=== PATIENT | female | born 1955 | race Caucasian/White ===

== ENCOUNTER 2018-05-18 16:56 | Emergency (ER) | payer MEDICAID ==
--- NOTE | 2018-05-18 18:46 | ER Document Report ---
ED General - General Chief Complaint: Abscess Stated Complaint: POSSIBLE ABSCESS Time Seen by Provider: 05/18/18 18:38 Mode of Arrival: Ambulatory Information source: Patient Notes: Carolin Gordon is a 63-year-old female presenting to the emergency department for an abscess of her left breast located at the 5 o'clock position approximately 1 inch away from her nipple. The abscess began yesterday and is associated with yellowish and clear drainage. She denies any other symptoms. She has a history of right breast cancer in 2004 which necessitated a mastectomy. It was stage III, and she cannot remember what type of breast cancer but she remembers that nipple retraction was her only presenting symptom. her last mammogram was in 2004 because she has not been able to organize transportation to mammogram appointments. She has a transport service available to her but found them too frustrating to work with. She is resting comfortably in bed, with no increased work of breathing and even and unlabored respirations. Her gait is steady and regular. TRAVEL OUTSIDE OF THE [place] IN LAST 30 DAYS: No - HPI Onset: Yesterday Onset/Duration: Sudden, Intermittent Quality of pain: Fullness, Sharp Severity: Moderate Pain Level: 2 Associated symptoms: None, Other - No unexpected weight loss. denies: Body/ muscle aches, Chills Exacerbated by: Denies Relieved by: Denies Similar symptoms previously: No Recently seen / treated by doctor: No - Related Data Allergies/Adverse Reactions: silk tape Allergy (Uncoded 05/18/18 17:02) Home Medications: none Past Medical History - General Information source: Patient - Social History Smoking Status: Current Every Day Smoker Chew tobacco use (# tins/day): No Frequency of alcohol use: None Drug Abuse: None Lives with: Family Family History: Reviewed & Not Pertinent Patient has suicidal ideation: No Patient has homicidal ideation: No - Medical History Medical History: Other - Past Medical History Cardiac Medical History: Reports: None Denies: Hx Hypertension Pulmonary Medical History: Reports: None Denies: Hx COPD EENT Medical History: Reports: None Neurological Medical History: Reports: None Endocrine Medical History: Reports: None Renal/ Medical History: Reports: None. Denies: Hx Peritoneal Dialysis Malignancy Medical History: Reports: Hx Breast Cancer - patient is unsure of type, stage III at diagnosis, s/p R mastectomy GI Medical History: Reports: None Musculoskeletal Medical History: Reports None Skin Medical History: Reports None Psychiatric Medical History: Reports: None Traumatic Medical History: Reports: None Infectious Medical History: Reports: None Past Surgical History: Reports: Hx Mastectomy - 2004 Review of Systems - Review of Systems Constitutional: denies: Fever, Malaise, Weight gain, Weight loss, Recent illness EENT: No symptoms reported Cardiovascular: No symptoms reported Respiratory: No symptoms reported Gastrointestinal: No symptoms reported Genitourinary: No symptoms reported Female Genitourinary: Post menopausal Musculoskeletal: No symptoms reported Skin: See HPI Hematologic/Lymphatic: No symptoms reported. denies: Enlarged lymph nodes Neurological/Psychological: No symptoms reported Physical Exam - Vital signs Vitals: Temp Pulse Resp BP Pulse Ox 97.8 F 95 20 169/74 H 99 05/18/18 17:17 05/18/18 17:17 05/18/18 17:17 05/18/18 17:17 05/18/18 17:17 - Notes Notes: Left breast has beefy erythema along the inferior half with raised borders. slight yellow d/c is located at the 5 o'clock position approximately 1 inch away from the nipple with scant clear and yellow discharge noted. Deep palpation along the inferior border of the breast reveals mobile, rubbery mass approximately 3 cm medial-lateral, and 1cm inferior-superior. Area of erythema noted to be 10 cm x 8 cm. R breast is s/p mastectomy with well-healed scar and no palpable masses or visible erythema. - General General appearance: Appears well, Alert In distress: None - HEENT Head: Normocephalic, Atraumatic Eyes: Normal Extraocular movements intact: Yes Neck: Normal. No: Anterior cervical chain, Posterior cervical chain, Lymphadenopathy - Respiratory Respiratory status: No respiratory distress Chest status: Nontender. No: Accessory muscle use Breath sounds: Normal Chest palpation: Normal - Cardiovascular Rhythm: Regular Heart sounds: Normal auscultation, S1 appreciated, S2 appreciated - Abdominal Inspection: Normal, Morbidly Obese. No: Caput medussa Distension: No distension Bowel sounds: Normal Tenderness: Nontender - Back Back: Normal - Extremities Arm: Other - R upper extremity lymphadema noted - Skin Skin Temperature: Warm Skin Moisture: Dry Course - Re-evaluation Re-evalutation: 05/18/18 20:05 Discussed with the patient at length ultrasound results. States there is no obvious pocket of infection to be drained at this time. Discussed need to follow-up with primary care provider and then get a full mammogram. Discussed treating the patient with antibiotics for the cellulitis. Patient states she does not have a primary care provider but does have insurance. Stated I would give her family practice doctor information through her discharge. Vitals reviewed, nursing notes reviewed. - Vital Signs Vital signs: Temp Pulse Resp BP Pulse Ox 97.8 F 95 20 169/74 H 99 05/18/18 17:17 05/18/18 17:17 05/18/18 17:17 05/18/18 17:17 05/18/18 17:17 Discharge - Discharge Clinical Impression: Cellulitis of breast Condition: Stable Disposition: HOME, SELF-CARE Instructions: Trimethoprim-Sulfa ([facility]), Cephalexin ([facility]), Cellulitis ([facility]), Family Physicians / Practices Additional Instructions: As we discussed you must follow-up with your primary care provider to then get a mammogram. It is very important that you do so. Please return to the emergency room for any other concerning symptoms. Please take antibiotics as prescribed. Prescriptions: Cephalexin Monohydrate [Keflex 500 mg Capsule] 500 mg PO BID 7 Days #14 capsule Sulfamethoxazole/Trimethoprim [Bactrim Ds Tablet] 1 each PO BID 7 Days #14 tablet Referrals: BINA JOVEL MD [Primary Care Provider] - Follow up as needed
--- NOTE | 2018-05-18 19:39 | RADIOLOGY REPORT (SQ) ---
EXAM DESCRIPTION: U/S BREAST UNILATERAL LIMITED COMPLETED DATE/TIME: 05/18/2018 7:30 pm REASON FOR STUDY: left breast R/O ABSCESS COMPARISON: None. TECHNIQUE: Static and Realtime grayscale interrogation of focal area(s) of concern in the left breas t(s) acquired. Selected color doppler/spectral images saved to PACS. ELASTOGRAPHY PERFORMED: No. LIMITATIONS: None. FINDINGS: Masses:No focal mass. No focal abscess. Diffuse edematous changes in the superficial and deep breast. Marked hyperemia with increased vascular flow. Architecture:No alteration of normal morphology. No skin thickening. No edema. Elastography characteristics: Not applicable. Other: None. IMPRESSION: Diffuse inflammatory changes both superficial and deep without a focal abscess. BIRAD: 2 RECOMMENDATION: RECOMMENDED FOLLOW-UP: Follow-up as clinically indicated. COMMENT: PATIENT NOTIFIED BY LETTER. [employer] [place] [employer], [employer] [place] [employer], and [employer] [place] [employer] recommend an annual screening mammogram for women aged 40 years or over. Each patient will recei ve a reminder prior to the anniversary date of her mammogram. The [employer] [place] [employer] ([employer]) has developed recommendations for screening MRI of the breast s in certain patient populations, to be used in conjunction with mammography. Breast MRI surveillanc e may be appropriate for women with more than 20% lifetime risk of developing breast cancer as deter mined by genetic testing, significant family history of the disease, or history of mantle radiation f or Hodgkins Disease. [employer] Practice Guidelines 2008. TECHNICAL DOCUMENTATION: FINDING NUMBER: (1) ASSESSMENT: (1) JOB ID: [id number] [employer]- All Rights Reserved Reading location - IP/workstation name: [email or web address]
[2018-05-18 20:31] VITALS: BP 158/79
== END 2018-05-18 20:45 | disposition home or self-care (01) ==
LOC: ER 16:56
DX: N61.0 Mastitis without abscess (principal); F17.200 Nicotine dependence, unspecified, uncomplicated; Z85.3 Personal history of malignant neoplasm of breast; Z90.11 Acquired absence of right breast and nipple; Z91.048 Other nonmedicinal substance allergy status
CPT/HCPCS: 76642; 99283

== ENCOUNTER 2019-01-15 10:28 | Emergency (ER) | payer MEDICAID ==
[2019-01-15] MEDS ORDERED: HYDROCODONE/ACETAMINOPHEN 5-325 MG TABLET PO ONE (11:20)
--- NOTE | 2019-01-15 12:25 | RADIOLOGY REPORT (SQ) ---
EXAM DESCRIPTION: FOREARM RIGHT COMPLETED DATE/TIME: 01/15/2019 11:58 am REASON FOR STUDY: fall COMPARISON: None. NUMBER OF VIEWS: Two views. TECHNIQUE: Two radiographic images acquired of the right forearm, including elbow and wrist in at le ast one projection. LIMITATIONS: None. FINDINGS: MINERALIZATION: Normal. BONES: No acute fracture. No worrisome bone lesions. SOFT TISSUES: No obvious swelling or foreign body. OTHER: No other significant finding. IMPRESSION: NEGATIVE STUDY OF THE RIGHT FOREARM. NO RADIOGRAPHIC EVIDENCE OF ACUTE INJURY. TECHNICAL DOCUMENTATION: JOB ID: [id number] [employer]- All Rights Reserved Reading location - IP/workstation name: [email or web address]
--- NOTE | 2019-01-15 12:32 | ER Document Report ---
HPI - HPI Time Seen by Provider: 01/15/19 11:10 Pain Level: 5 Notes: Patient is a 63-year-old female presented to the emergency department chief complaint of right forearm pain. Patient reports she was trying to change the batteries in her smoke detector when she fell onto her arm yesterday. She reports all pain is located in the mid forearm. - CONSTITUTIONAL Constitutional: DENIES: Fever, Chills - MUSCULOSKELETAL Musculoskeletal: REPORTS: Extremity pain - right forearm Past Medical History - General Information source: Patient - Social History Smoking Status: Former Smoker Frequency of alcohol use: None Drug Abuse: None Family History: Reviewed & Not Pertinent Patient has suicidal ideation: No Patient has homicidal ideation: No - Past Medical History Cardiac Medical History: Denies: Hx Hypertension Pulmonary Medical History: Denies: Hx COPD Renal/ Medical History: Denies: Hx Peritoneal Dialysis Malignancy Medical History: Reports: Hx Breast Cancer - patient is unsure of type, stage III at diagnosis, s/p R mastectomy Past Surgical History: Reports: Hx Mastectomy - 2004, 18 lymph nodes removed Vertical Provider Document - CONSTITUTIONAL Notes: PHYSICAL EXAMINATION: GENERAL: Well-appearing, well-nourished and in no acute distress. HEAD: Atraumatic, normocephalic. EYES: Pupils equal round extraocular movements intact, conjunctiva are normal. ENT: Nares patent NECK: Normal range of motion LUNGS: No respiratory distress Musculoskeletal: Significant swelling noted to mid right forearm, cap refill less than 3 seconds, strong radial and ulnar pulses, normal motor and sensation distal to injury. NEUROLOGICAL: Normal speech, normal gait. PSYCH: Normal mood, normal affect. SKIN: Warm, Dry, normal turgor, no rashes or lesions noted. - INFECTION CONTROL TRAVEL OUTSIDE OF THE [place] IN LAST 30 DAYS: No Course - Re-evaluation Re-evalutation: X-rays negative for any acute findings. No fractures, no dislocations. Patient will be placed in a sling for comfort. Encouraged ice, elevate and take ibuprofen. ED return precautions discussed, patient verbalized understanding and agreement with same. The patient's emergency department workup and current diagnosis were explained to the patient and or family. Follow-up instructions were provided. Medications if prescribed were discussed. Instructions for when to return to the emergency department including specific worrisome symptoms were discussed with t he patient and/or family. - Vital Signs Vital signs: Temp Pulse Resp BP Pulse Ox 97.8 F 103 H 18 176/85 H 93 01/15/19 10:33 01/15/19 10:33 01/15/19 10:33 01/15/19 10:33 01/15/19 10:33 Procedures - Immobilization Right arm Pre-Proc Neuro Vasc Exam: Normal Immobilizer type: Sling Performed by: PCT Post-Proc Neuro Vasc Exam: Normal Alignment checked and good: Yes Discharge - Discharge Clinical Impression: Contusion of right forearm Qualifiers: Encounter type: initial encounter Qualified Code(s): S50.11XA - Contusion of right forearm, initial encounter Condition: Stable Disposition: HOME, SELF-CARE Additional Instructions: Contusion Your injury has resulted in a contusion -- a crushing of the deep tissues. No injury to important structures was detected during the physician's exam. Contusions vary in the amount of pain they cause, and in the length of time required for healing. Typically, the area will become bruised, and will remain painful to touch for two or three weeks. However, most patients are back to working and playing within a few days. After the initial period of rest and cold-packs, your symptoms (together with the doctor's recommendations) will determine how rapidly you can get back to full activity. Usually this means "do what feels okay, but don't do things that hurt." If re-examination was recommended, it's important to follow up as instructed. Call the doctor or return any time if pain increases, if swelling becomes severe, if you develop numbness or weakness in an injured extremity, or if any other alarming symptoms occur. Ice & Elevation Apply ice packs frequently against the painful area. Many different schedules are recommended, such as "20 minutes on, 20 minutes off" or "one hour ice, two hours rest." If you need to work, you may need to go longer between ice treatments. You should plan to have the area ice packed AT LEAST one-fourth of the time. The ice should be applied over the wrap, tape, or splint, or over a layer of cloth -- not directly against the skin. Some ice bags have a built-in cloth and can be put directly on the skin. Your injured part should be elevated as much as possible over the next 48 hours. Try to keep the injury above the level of the heart. Avoid use of the injured area. Elevation and rest will decrease the swelling. Ibuprofen Ibuprofen is an excellent, safe drug for pain control. In addition, it has potent antiinflammatory effects which are beneficial, especially in the treatment of injuries, arthritis, or tendonitis. It's best to take ibuprofen with food. Persons with ulcer disease or allergy to aspirin should notify their physician of this before taking ibuprofen. Take the medication exactly as prescribed. Don't take additional doses unless instructed to do so by your doctor. If you develop wheezing, shortness of breath, hives, faintness, stomach pain, vomiting, or dark black stools, return for re-evaluation at once. The x-rays were negative for any fracture or dislocation. Please take ibuprofen [id number] as directed to help with pain and inflammation. Use the narcotic pain medication for severe pain only. Continue to use your sleeve or Bear wrap to help with comfort and compression. Follow-up with your primary care or orthopedics if not improving over the next 2 to 3 days. Prescriptions: Hydrocodone Bit/Acetaminophen [Hydrocodon-Acetaminophen 5-325] 1 each PO Q4H #10 tablet
[2019-01-15 12:41] VITALS: BP 156/77
== END 2019-01-15 12:40 | disposition home or self-care (01) ==
LOC: ER 10:28
DX: S50.11XA Contusion of right forearm, initial encounter (principal); M79.631 Pain in right forearm; W19.XXXA Unspecified fall, initial encounter; Z87.891 Personal history of nicotine dependence
CPT/HCPCS: 99283

== ENCOUNTER 2019-05-03 13:00 | Inpatient (IN) | payer MEDICAID, OTHER ==
[2019-05-03] MEDS ORDERED: METHYLPREDNISOLONE INJ 125 MG/2 ML SDV IV ONE (13:22)
--- NOTE | 2019-05-03 13:24 | ER Document Report ---
ED Respiratory Problem - General Chief Complaint: Shortness Of Breath Stated Complaint: SHORTNESS OF BREATH Time Seen by Provider: 05/03/19 13:15 Information source: Patient Notes: HPI: Patient is a 63-year-old female who denies any past medical history who states that for 1 week she had some cough, shortness of breath, nasal congestion. No chest pain, leg swelling, or fevers. No nausea or vomiting. Patient states a long history of smoking but denies any history of emphysema. No recent trips or travel. EMS placed the patient on oxygen secondary to low oxygen saturations. Patient does not have a primary care physician. Patient states she is been coughing up yellow-green phlegm. ROS: See HPI All other review of systems reviewed and otherwise negative Reviewed vital signs and nursing note as charted by RN. PHYSICAL EXAM: CONSTITUTIONAL: Alert and oriented and responds appropriately to questions. Well-appearing; well-nourished HEAD: Normocephalic; atraumatic EYES: PERRL; Conjunctivae clear, sclerae non-icteric ENT: Normal nose; bilateral nonpurulent nasal rhinorrhea; moist mucous membranes ; pharynx without lesions noted NECK: Supple without meningismus; non-tender; no cervical lymphadenopathy, no masses CARD: Regular rate and rhythm; no murmurs; symmetric distal pulses RESP: Normal chest excursion without splinting or tachypnea; patient has end expiratory wheezing bilaterally without rhonchi or rales ABD/GI: Normal bowel sounds; elevated BMI; soft, non-tender; no palpable organ omegaly or masses BACK: The back appears normal and is non-tender to palpation EXT: Normal ROM in all joints; non-tender to palpation; no edema SKIN: No acute lesions noted NEURO: CN 2-12 intact; 5/5 bilateral upper and lower extremity strength with sensation intact to light touch PSYCH: The patient's mood and manner are appropriate. Grooming and personal hygiene are appropriate. TRAVEL OUTSIDE OF THE [place] IN LAST 30 DAYS: No - Related Data Allergies/Adverse Reactions: silk tape Allergy (Uncoded 05/03/19 13:18) Past Medical History - Social History Smoking Status: Current Every Day Smoker Family History: Reviewed & Not Pertinent Patient has suicidal ideation: No Patient has homicidal ideation: No - Past Medical History Cardiac Medical History: Reports: Hx Hypertension Pulmonary Medical History: Denies: Hx COPD Renal/ Medical History: Denies: Hx Peritoneal Dialysis Malignancy Medical History: Reports: Hx Breast Cancer - patient is unsure of type, stage III at diagnosis, s/p R mastectomy Past Surgical History: Reports: Hx Mastectomy - 2004, 18 lymph nodes removed Physical Exam - Vital signs Vitals: Temp Resp BP Pulse Ox 98.1 F 28 H 160/86 H 95 05/03/19 13:04 05/03/19 13:04 05/03/19 13:04 05/03/19 13:04 Course - Re-evaluation Re-evalutation: 05/03/19 13:24 We will initially obtain basic labs, EKG, cardiac labs, x-ray of the chest, and provide duo nebulizers and steroids. I do believe that the patient may be suffering from bronchitis or her first COPD exacerbation. I like to assess the possibility also of a cardiac etiology or pneumonia. I do believe ACS or dissection to be unlikely. 05/03/19 14:04 EKG shows heart rate of 86, normal sinus rhythm, normal axis, no ST elevation or depression. 05/03/19 14:16 Wheezing has improved. X-ray shows pneumonia. Steroids and antibiotics have been provided. Given the initial room air oxygen saturation 99% with a pneumonia and wheezing, patient will be admitted to the hospitalist service for further evaluation and treatment. - Vital Signs Vital signs: Temp Pulse Resp BP Pulse Ox 98.1 F 28 H 160/86 H 95 05/03/19 13:04 05/03/19 13:04 05/03/19 13:04 05/03/19 13:04 - Laboratory Result Diagrams: 05/03/19 12:36 05/03/19 12:36 Laboratory results interpreted by me: 05/03/19 05/03/19 12:36 12:36 WBC 13.0 H Seg Neuts % (Manual) 91 H Lymphocytes % (Manual) 3 L Abs Neuts (Manual) 11.8 H Abs Lymphs (Manual) 0.4 L Carbon Dioxide 31 H Glucose 121 H Discharge - Discharge Clinical Impression: Bacterial pneumonia, Wheezing Condition: Fair Disposition: ADMITTED OBSERVATION Admitting Provider: Annita (Hospitalist) Unit Admitted: Telemetry
[2019-05-03] MEDS: IPRATROPIUM/ALBUTEROL 0.5-2.5 MG/3 ML AMPUL NEB SCH ×2 (13:35→14:01)
[2019-05-03 13:37] LABS: HEMATOCRIT 45.9 % (36.0-47.0); HEMOGLOBIN 15.5 g/dL (12.0-15.5); MEAN CORPUSCULAR HEMOGLOBIN 30.7 pg (27.0-33.4); MEAN CORPUSCULAR HGB CONC 33.9 g/dL (32.0-36.0); MEAN CORPUSCULAR VOLUME 91 fl (80-97); PLATELET COUNT 290 10^3/uL (150-450); RED BLOOD COUNT 5.06 10^6/uL (3.72-5.28); RED CELL DISTRIBUTION WIDTH 13.1 % (11.5-14.0)
[2019-05-03 13:43] LABS: ANION GAP 10 (5-19); BLOOD UREA NITROGEN 8 mg/dL (7-20); CARBON DIOXIDE 31 mmol/L (22-30); CHLORIDE 99 mmol/L (98-107); GLUCOSE 121 mg/dL (75-110); POTASSIUM 4.2 mmol/L (3.6-5.0)
[2019-05-03 13:53] LABS: ABSOLUTE LYMPHOCYTES# (MANUAL) 0.4 10^3/uL (0.5-4.7); ABSOLUTE MONOCYTES # (MANUAL) 0.8 10^3/uL (0.1-1.4); BASOPHILS % (MANUAL) 0 % (0-2); EOSINOPHILS % (MANUAL) 0 % (0-6); LYMPHOCYTES % (MANUAL) 3 % (13-45); MONOCYTES % (MANUAL) 6 % (3-13); SEGMENTED NEUTROPHILS % (MAN) 91 % (42-78); TOTAL CELLS COUNTED 100
[2019-05-03 13:54] LABS: PLATELET COMMENT ADEQUATE
--- NOTE | 2019-05-03 13:55 | RADIOLOGY REPORT (SQ) ---
EXAM DESCRIPTION: CHEST 2 VIEWS COMPLETED DATE/TIME: 05/03/2019 1:45 pm REASON FOR STUDY: 3, cough and sob COMPARISON: None. TECHNIQUE: Frontal and lateral radiographic views of the chest acquired. NUMBER OF VIEWS: Two view. LIMITATIONS: None. FINDINGS: LUNGS AND PLEURA: Hyperinflated, COPD. Patchy right basilar infiltrates, likely in the ri ght middle lobe. Minimal probable scarring in the right apex. No pleural fluid or pneumothorax. MEDIASTINUM AND HILAR STRUCTURES: No masses or contour abnormalities. HEART AND VASCULAR STRUCTURES: Heart normal size. No evidence for failure. BONES: Osteopenic without fracture. HARDWARE: None in the chest. OTHER: No other significant finding. IMPRESSION: Right lung infiltrate suspicious for pneumonia. Surveillance followup radiographs recom mended to document resolution. . TECHNICAL DOCUMENTATION: JOB ID: [id number] [employer]- All Rights Reserved Reading location - IP/workstation name: [email or web address]
[2019-05-03] MEDS ORDERED: AZITHROMYCIN INJ 500 MG VIAL IV ONE (14:16)
[2019-05-03] MEDS ORDERED: CEFTRIAXONE 1 GM/D5W RTU 1 GM/50 ML RTUPB IV ONE (14:16)
--- NOTE | 2019-05-03 15:28 | PDOC H&P ---
History of Present Illness Admission Date/PCP: 05/03/19 14:31 History of Present Illness: JEAN FREEDMAN is a 63 year old female who for about 1 week now has had some cough and shortness of breath with nasal congestion. She states she does not have a history of COPD. She does not have a PCP. She has been coughing up yellow- green phlegm. O2 sats are in the mid 90s in the ED Patient states she smokes 1 pack of cigarettes per day. No drug allergies. Past Medical History Cardiac Medical History: Reports: Hypertension Pulmonary Medical History: Denies: Chronic Obstructive Pulmonary Disease (COPD) Malignancy Medical History: Reports: Breast Cancer - patient is unsure of type, stage III at diagnosis, s/p R mastectomy Past Surgical History Past Surgical History: Reports: Mastectomy - 2004, 18 lymph nodes removed Social History Smoking Status: Current Every Day Smoker - Advance Directive Resuscitation Status: Do Not Resuscitate Family History Family History: Reviewed & Not Pertinent Parental Family History Reviewed: No Children Family History Reviewed: No Sibling(s) Family History Reviewed.: No Medication/Allergy Allergies/Adverse Reactions: silk tape Allergy (Uncoded 05/03/19 13:18) Review of Systems Constitutional: PRESENT: weakness Cardiovascular: ABSENT: chest pain, dyspnea on exertion, edema, orthropnea, palpitations Respiratory: PRESENT: cough, dyspnea, sputum Neurological: ABSENT: abnormal gait, abnormal speech, confusion, dizziness, focal weakness, syncope Psychiatric: ABSENT: anxiety, depression, homidical ideation, suicidal ideation Physical Exam Vital Signs: Temp Pulse Resp BP Pulse Ox 98.1 F 26 H 159/77 H 100 05/03/19 13:04 05/03/19 14:01 05/03/19 14:01 05/03/19 14:01 Intake & Output 05/02/19 05/03/19 05/04/19 07:59 06:59 06:59 Weight 76.6 kg General appearance: PRESENT: mild distress, other Respiratory exam: PRESENT: rales, wheezes Cardiovascular exam: PRESENT: RRR. ABSENT: diastolic murmur, rubs, systolic murmur Neurological exam: PRESENT: alert, awake, oriented to person, oriented to place, oriented to time, oriented to situation, CN II-XII grossly intact. ABSENT: motor sensory deficit Psychiatric exam: PRESENT: appropriate affect, normal mood. ABSENT: homicidal ideation, suicidal ideation Results Laboratory Results: 05/03/19 12:36 05/03/19 12:36 05/03/19 05/03/19 12:36 12:36 WBC 13.0 H RBC 5.06 Hgb 15.5 Hct 45.9 MCV 91 MCH 30.7 MCHC 33.9 RDW 13.1 Plt Count 290 Seg Neutrophils % Not Reportable Sodium 139.9 Potassium 4.2 Chloride 99 Carbon Dioxide 31 H Anion Gap 10 BUN 8 Creatinine 0.73 Est GFR ( Amer) > 60 Glucose 121 H Calcium 9.0 05/03/19 12:36 Troponin I < 0.012 Impressions: Chest X-Ray 05/03/19 13:21 IMPRESSION: Right lung infiltrate suspicious for pneumonia. Surveillance followup radiographs recommended to document resolution. . Assessment and Plan - Diagnosis (1) Tobacco abuse Is this a current diagnosis for this admission?: Yes (2) Bacterial pneumonia Is this a current diagnosis for this admission?: Yes (3) Wheezing Is this a current diagnosis for this admission?: Yes (4) Hypertension Is this a current diagnosis for this admission?: Yes - Plan Summary Summary: Patient will be admitted for IV antibiotics, IV fluids , some IV steroids, pulmonary toiletry. Patient states that she is never been diagnosed with COPD. Patient appears to be doing well which is nasal cannula oxygen and does not require BiPAP or CPAP. - Time Time Spent with patient: 35 or more minutes
--- NOTE | 2019-05-03 16:40 | EKG REPORT ---
SEVERITY:- NORMAL ECG - SINUS RHYTHM : Confirmed by: Ashutosh Greco MD 03-May-2019 16:38:43
[2019-05-03] MEDS ORDERED: HYDRALAZINE HCL INJ/PF 20 MG/1 ML SDV ONE (17:35)
[2019-05-03] MEDS: NORMAL SALINE 1000 ML 1,000 ML IV PRN (17:42)
[2019-05-03 17:59] LABS: APPEARANCE,URINE CLEAR; BILIRUBIN,URINE NEGATIVE (NEGATIVE); COLOR,URINE YELLOW; GLUCOSE, URINE >=500 mg/dL (NEGATIVE); KETONES,URINE 20 mg/dL (NEGATIVE); LEUKOCYTE ESTERASE,URINE NEGATIVE (NEGATIVE); NITRITE,URINE NEGATIVE (NEGATIVE); PROTEIN,URINE 30 mg/dL (NEGATIVE); URINE SPECIFIC GRAVITY 1.024; UROBILINOGEN,URINE NEGATIVE mg/dL (<2.0)
[2019-05-03 18:05] LABS: ADD MANUAL MICROSCOPIC YES
[2019-05-03] MEDS: FAMOTIDINE 20 MG TABLET PO SCH (21:27)
[2019-05-03] MEDS: METHYLPREDNISOLONE INJ 40 MG/1 ML SDV IV SCH (21:27)
[2019-05-03] MEDS: ACETAMINOPHEN 325 MG TABLET PO PRN (21:33)
[2019-05-03] MEDS: HYDRALAZINE HCL INJ/PF 20 MG/1 ML SDV IV PRN (21:37)
[2019-05-03] MEDS ORDERED: GUAIFENESIN 600 MG TABLET.SA PO SCH (22:00)
[2019-05-04] MEDS: NORMAL SALINE 1000 ML 1,000 ML IV PRN ×2 (04:05→21:00)
[2019-05-04 05:29] LABS: HEMATOCRIT 40.9 % (36.0-47.0); HEMOGLOBIN 13.7 g/dL (12.0-15.5); MEAN CORPUSCULAR HEMOGLOBIN 30.3 pg (27.0-33.4); MEAN CORPUSCULAR HGB CONC 33.4 g/dL (32.0-36.0); MEAN CORPUSCULAR VOLUME 91 fl (80-97); PLATELET COUNT 273 10^3/uL (150-450); RED BLOOD COUNT 4.52 10^6/uL (3.72-5.28); RED CELL DISTRIBUTION WIDTH 12.8 % (11.5-14.0); WHITE BLOOD COUNT 13.5 10^3/uL (4.0-10.5)
[2019-05-04 05:54] LABS: ANION GAP 10 (5-19); BLOOD UREA NITROGEN 15 mg/dL (7-20); CALCIUM 8.4 mg/dL (8.4-10.2); CARBON DIOXIDE 25 mmol/L (22-30); CHLORIDE 104 mmol/L (98-107); GLUCOSE 185 mg/dL (75-110); POTASSIUM 4.4 mmol/L (3.6-5.0)
[2019-05-04 06:17] LABS: ABSOLUTE LYMPHOCYTES# (MANUAL) 0.3 10^3/uL (0.5-4.7); ABSOLUTE MONOCYTES # (MANUAL) 0.3 10^3/uL (0.1-1.4); BASOPHILS % (MANUAL) 0 % (0-2); EOSINOPHILS % (MANUAL) 0 % (0-6); LYMPHOCYTES % (MANUAL) 2 % (13-45); MONOCYTES % (MANUAL) 2 % (3-13); PLATELET COMMENT ADEQUATE; RBC MORPHOLOGY COMMENT NORMO-CYTIC/CHROMIC; SEGMENTED NEUTROPHILS % (MAN) 96 % (42-78); TOTAL CELLS COUNTED 100
--- NOTE | 2019-05-04 10:33 | PDOC PROGRESS REPORT ---
Subjective Progress Note for:: 05/04/19 Reason For Visit: PNEUMONIA,TOBACCO ABUSE,HYPERTENSION,BREAST CANCER 05/04/2019 Patient was admitted yesterday afternoon through the emergency room for a one- week history of upper respiratory infection, pneumonia Physical Exam Vital Signs: Temp Pulse Resp BP Pulse Ox 98.6 F 83 19 147/79 H 94 05/04/19 03:37 05/04/19 03:37 05/04/19 03:37 05/04/19 03:37 05/04/19 03:37 Intake & Output 05/03/19 05/04/19 05/05/19 06:59 06:59 06:59 Intake Total 1290 Balance 1290 Weight 74.5 kg General appearance: PRESENT: no acute distress, other - This morning patient reports feeling much better less shortness of breath Respiratory exam: PRESENT: rhonchi - Scattered Cardiovascular exam: PRESENT: RRR. ABSENT: diastolic murmur, rubs, systolic murmur Neurological exam: PRESENT: alert, awake, oriented to person, oriented to place, oriented to time, oriented to situation, CN II-XII grossly intact. ABSENT: motor sensory deficit Psychiatric exam: PRESENT: appropriate affect, normal mood. ABSENT: homicidal ideation, suicidal ideation Results Laboratory Results: 05/04/19 04:32 05/04/19 04:32 05/03/19 05/03/19 05/03/19 12:36 12:36 17:40 WBC 13.0 H RBC 5.06 Hgb 15.5 Hct 45.9 MCV 91 MCH 30.7 MCHC 33.9 RDW 13.1 Plt Count 290 Seg Neutrophils % Not Reportable Sodium 139.9 Potassium 4.2 Chloride 99 Carbon Dioxide 31 H Anion Gap 10 BUN 8 Creatinine 0.73 Est GFR ( Amer) > 60 Glucose 121 H Calcium 9.0 Urine Color YELLOW Urine Appearance CLEAR Urine pH 6.0 Ur Specific [place] 1.024 Urine Protein 30 H Urine Glucose (UA) >=500 H Urine Ketones 20 H Urine Blood NEGATIVE Urine Nitrite NEGATIVE Ur Leukocyte Esterase NEGATIVE Ur Squamous Epith Cells MANY 05/04/19 05/04/19 04:32 04:32 WBC 13.5 H RBC 4.52 Hgb 13.7 Hct 40.9 MCV 91 MCH 30.3 MCHC 33.4 RDW 12.8 Plt Count 273 Seg Neutrophils % Not Reportable Sodium 138.7 Potassium 4.4 Chloride 104 Carbon Dioxide 25 Anion Gap 10 BUN 15 Creatinine 0.73 Est GFR ( Amer) > 60 Glucose 185 H Calcium 8.4 Urine Color Urine Appearance Urine pH Ur Specific [place] Urine Protein Urine Glucose (UA) Urine Ketones Urine Blood Urine Nitrite Ur Leukocyte Esterase Ur Squamous Epith Cells 05/03/19 05/03/19 12:36 12:36 Troponin I < 0.012 NT-Pro-B Natriuret Pep 1160 H Impressions: Chest X-Ray 05/03/19 13:21 IMPRESSION: Right lung infiltrate suspicious for pneumonia. Surveillance followup radiographs recommended to document resolution. . Assessment and Plan - Diagnosis (1) Tobacco abuse Is this a current diagnosis for this admission?: Yes (2) Bacterial pneumonia Is this a current diagnosis for this admission?: Yes (3) Wheezing Is this a current diagnosis for this admission?: Yes (4) Hypertension Is this a current diagnosis for this admission?: Yes - Plan Summary Summary: Patient will be admitted for IV antibiotics, IV fluids , some IV steroids, pulmonary toiletry. Patient states that she is never been diagnosed with COPD. Patient appears to be doing well which is nasal cannula oxygen and does not require BiPAP or CPAP. 05/04/2019 Vital signs are stable this morning blood pressure 147/79, which are 98 6, O2 sats running between 94 and 100% on 3 L nasal cannula. Patient does not use oxygen at home. Patient has no previous diagnosis of COPD BNP slightly elevated at 1160 though this does not seem to have CHF White count is stable at about 13,000, renal function appears good, chest x-ray shows pneumonia in right lung infiltrate base Patient is currently on Solu-Medrol 40 every 12 Rocephin 1 g daily and Zithromax 100 mg IV daily - Time Time Spent with patient: 25-34 minutes
[2019-05-04] MEDS: GUAIFENESIN 600 MG TABLET.SA PO SCH ×2 (10:48→21:11)
[2019-05-04] MEDS: METHYLPREDNISOLONE INJ 40 MG/1 ML SDV IV SCH ×2 (10:48→21:11)
[2019-05-04] MEDS: ACETAMINOPHEN 325 MG TABLET PO PRN (10:48)
[2019-05-04] MEDS: ENOXAPARIN SODIUM INJ 40 MG/0.4 ML DISP.SYRIN SUBCUT SCH (10:48)
[2019-05-04] MEDS: FAMOTIDINE 20 MG TABLET PO SCH ×2 (10:48→21:11)
[2019-05-04] MEDS: CEFTRIAXONE 1 GM/D5W RTU 1 GM/50 ML RTUPB IV SCH (10:48)
[2019-05-04] MEDS: AZITHROMYCIN 500 MG in DEXTROSE 5%-WATER 250 ML IV SCH (11:34)
[2019-05-04] MEDS: HYDRALAZINE HCL INJ/PF 20 MG/1 ML SDV IV PRN (11:35)
[2019-05-05] MEDS: NORMAL SALINE 1000 ML 1,000 ML IV PRN (05:16)
[2019-05-05] MEDS: CEFTRIAXONE 1 GM/D5W RTU 1 GM/50 ML RTUPB IV SCH (09:44)
[2019-05-05] MEDS: ENOXAPARIN SODIUM INJ 40 MG/0.4 ML DISP.SYRIN SUBCUT SCH (09:44)
[2019-05-05] MEDS: FAMOTIDINE 20 MG TABLET PO SCH ×2 (09:44→21:19)
[2019-05-05] MEDS: METHYLPREDNISOLONE INJ 40 MG/1 ML SDV IV SCH (09:44)
[2019-05-05] MEDS: GUAIFENESIN 600 MG TABLET.SA PO SCH ×2 (09:44→21:19)
--- NOTE | 2019-05-05 09:45 | EKG REPORT ---
SEVERITY:- BORDERLINE ECG - SINUS RHYTHM BORDERLINE PROLONGED QT INTERVAL : Confirmed by: Emily Howard 05-May-2019 09:45:08
[2019-05-05] MEDS: AZITHROMYCIN 500 MG in DEXTROSE 5%-WATER 250 ML IV SCH (10:23)
[2019-05-05] MEDS: IPRATROPIUM/ALBUTEROL 0.5-2.5 MG/3 ML AMPUL NEB PRN (11:12)
--- NOTE | 2019-05-05 17:05 | PDOC PROGRESS REPORT ---
Subjective Progress Note for:: 05/05/19 Subjective:: Patient is a 63-year-old female who presented with shortness of breath and was found to have a right lower lobe pneumonia. No acute event overnight. Upon encounter, she saturating well on 2 L of nasal cannula. She is not on home O2. She says that her shortness of breath has slightly from yesterday. She denies chest pain. Reason For Visit: PNEUMONIA,TOBACCO ABUSE,HYPERTENSION,BREAST CANCER Physical Exam Vital Signs: Temp Pulse Resp BP Pulse Ox 97.5 F 99 26 H 141/54 H 94 05/05/19 13:13 05/05/19 14:00 05/05/19 13:13 05/05/19 13:13 05/05/19 13:13 Intake & Output 05/04/19 05/05/19 05/06/19 06:59 06:59 06:59 Intake Total 1290 2829 Balance 1290 2829 Weight 164 lb 3.91 oz 175 lb 4.28 oz General appearance: PRESENT: no acute distress, well-developed, well-nourished Head exam: PRESENT: atraumatic, normocephalic Eye exam: PRESENT: conjunctiva pink, EOMI, PERRLA. ABSENT: scleral icterus Ear exam: PRESENT: normal external ear exam Mouth exam: PRESENT: moist, tongue midline Neck exam: ABSENT: carotid bruit, JVD, lymphadenopathy, thyromegaly Respiratory exam: PRESENT: rhonchi. ABSENT: rales, wheezes Cardiovascular exam: PRESENT: RRR. ABSENT: diastolic murmur, rubs, systolic murmur Pulses: PRESENT: normal dorsalis pedis pul GI/Abdominal exam: PRESENT: normal bowel sounds, soft. ABSENT: distended, guarding, mass, organolmegaly, rebound, tenderness Rectal exam: PRESENT: deferred Extremities exam: PRESENT: full ROM. ABSENT: calf tenderness, clubbing, pedal edema Neurological exam: PRESENT: alert, awake, oriented to person, oriented to place, oriented to time, oriented to situation, CN II-XII grossly intact. ABSENT: motor sensory deficit Results Laboratory Results: 05/04/19 04:32 05/04/19 04:32 05/03/19 05/03/19 12:36 12:36 Troponin I < 0.012 NT-Pro-B Natriuret Pep 1160 H Impressions: Chest X-Ray 05/03/19 13:21 IMPRESSION: Right lung infiltrate suspicious for pneumonia. Surveillance followup radiographs recommended to document resolution. . Assessment and Plan - Diagnosis (1) Acute respiratory failure with hypoxia Is this a current diagnosis for this admission?: Yes Plan: Secondary to right lower lobe pneumonia. Currently on 2 L of nasal cannula. Will try to wean off O2 today. (2) Bacterial pneumonia Is this a current diagnosis for this admission?: Yes Plan: Continue IV antibiotics. Follow-up on sputum culture. Currently on Solu-Medrol 40 mg IV every 12. Switch to low-dose prednisone. (3) Hypertension Is this a current diagnosis for this admission?: Yes Plan: Controlled. - Plan Summary Summary: Patient will be admitted for IV antibiotics, IV fluids , some IV steroids, pulmonary toiletry. Patient states that she is never been diagnosed with COPD. Patient appears to be doing well which is nasal cannula oxygen and does not require BiPAP or CPAP. 05/04/2019 Vital signs are stable this morning blood pressure 147/79, which are 98 6, O2 sats running between 94 and 100% on 3 L nasal cannula. Patient does not use oxygen at home. Patient has no previous diagnosis of COPD BNP slightly elevated at 1160 though this does not seem to have CHF White count is stable at about 13,000, renal function appears good, chest x-ray shows pneumonia in right lung infiltrate base Patient is currently on Solu-Medrol 40 every 12 Rocephin 1 g daily and Zithromax 100 mg IV daily
[2019-05-05] MEDS: PREDNISONE 20 MG TABLET PO SCH (17:39)
[2019-05-06] MEDS: NORMAL SALINE 1000 ML 1,000 ML IV PRN (03:17)
[2019-05-06] MEDS: CEFTRIAXONE 1 GM/D5W RTU 1 GM/50 ML RTUPB IV SCH (09:31)
[2019-05-06] MEDS: PREDNISONE 20 MG TABLET PO SCH ×2 (09:31→17:08)
[2019-05-06] MEDS: ENOXAPARIN SODIUM INJ 40 MG/0.4 ML DISP.SYRIN SUBCUT SCH (09:31)
[2019-05-06] MEDS: FAMOTIDINE 20 MG TABLET PO SCH ×2 (09:31→21:24)
[2019-05-06] MEDS: GUAIFENESIN 600 MG TABLET.SA PO SCH ×2 (09:31→21:24)
[2019-05-06] MEDS: AZITHROMYCIN 500 MG in DEXTROSE 5%-WATER 250 ML IV SCH (10:09)
[2019-05-06] MEDS: IPRATROPIUM/ALBUTEROL 0.5-2.5 MG/3 ML AMPUL NEB PRN (11:01)
[2019-05-06] MEDS: HYDRALAZINE HCL INJ/PF 20 MG/1 ML SDV IV PRN ×2 (11:32→21:24)
--- NOTE | 2019-05-06 14:49 | RADIOLOGY REPORT (SQ) ---
EXAM DESCRIPTION: CHEST SINGLE VIEW COMPLETED DATE/TIME: 05/06/2019 2:32 pm REASON FOR STUDY: reassess infiltrate COMPARISON: 05/03/2019 NUMBER OF VIEWS: One view. TECHNIQUE: Single frontal radiographic view of the chest acquired. LIMITATIONS: None. FINDINGS: LUNGS AND PLEURA: Right lower lobe airspace has resolved. Lung bautista are grossly clear. Stable scarring in the right apex. MEDIASTINUM AND HILAR STRUCTURES: No masses. Contour normal. HEART AND VASCULAR STRUCTURES: Heart normal in size. Normal vasculature. BONES: No acute findings. HARDWARE: None in the chest. OTHER: No other significant finding. IMPRESSION: Right lower lobe infiltrate has resolved. TECHNICAL DOCUMENTATION: JOB ID: [id number] [employer]- All Rights Reserved Reading location - IP/workstation name: [email or web address]
--- NOTE | 2019-05-06 18:13 | PDOC PROGRESS REPORT ---
Subjective Progress Note for:: 05/06/19 Subjective:: Patient is a 63-year-old female who presented with shortness of breath and was found to have a right lower lobe pneumonia. 05/05: Upon encounter, she saturating well on 2 L of nasal cannula. She is not on home O2. She says that her shortness of breath has slightly from yesterday. She denies chest pain. 05/06: No acute event overnight. She denies acute complaints. She says that her shortness of breath continued to improve and she is returning to her baseline. Will have patient ambulate and evaluate for home O2 need. Reason For Visit: PNEUMONIA,TOBACCO ABUSE,HYPERTENSION,BREAST CANCER Physical Exam Vital Signs: Temp Pulse Resp BP Pulse Ox 97.8 F 96 22 H 160/52 H 93 05/06/19 11:47 05/06/19 11:47 05/06/19 11:47 05/06/19 12:54 05/06/19 11:47 Intake & Output 05/05/19 05/06/19 05/07/19 06:59 06:59 06:59 Intake Total 2829 1900 Balance 2829 1900 Weight 175 lb 4.28 oz 177 lb 0.499 oz General appearance: PRESENT: no acute distress, well-developed, well-nourished Head exam: PRESENT: atraumatic, normocephalic Eye exam: PRESENT: conjunctiva pink, EOMI, PERRLA. ABSENT: scleral icterus Ear exam: PRESENT: normal external ear exam Mouth exam: PRESENT: moist, tongue midline Neck exam: ABSENT: carotid bruit, JVD, lymphadenopathy, thyromegaly Respiratory exam: PRESENT: clear to auscultation aleksandra. ABSENT: rales, rhonchi, wheezes Cardiovascular exam: PRESENT: RRR. ABSENT: diastolic murmur, rubs, systolic murmur Pulses: PRESENT: normal dorsalis pedis pul GI/Abdominal exam: PRESENT: normal bowel sounds, soft. ABSENT: distended, guarding, mass, organolmegaly, rebound, tenderness Rectal exam: PRESENT: deferred Extremities exam: PRESENT: full ROM. ABSENT: calf tenderness, clubbing, pedal edema Neurological exam: PRESENT: alert, awake, oriented to person, oriented to place, oriented to time, oriented to situation, CN II-XII grossly intact. ABSENT: motor sensory deficit Results Laboratory Results: 05/04/19 04:32 05/04/19 04:32 05/05/19 12:35 Sputum Gram Stain - Final 05/05/19 12:35 Sputum Sputum Culture - Final C.albicans/C.dubliniensis Normal Inge Absent 05/03/19 05/03/19 12:36 12:36 Troponin I < 0.012 NT-Pro-B Natriuret Pep 1160 H Impressions: Chest X-Ray 05/03/19 13:21 IMPRESSION: Right lung infiltrate suspicious for pneumonia. Surveillance followup radiographs recommended to document resolution. . Assessment and Plan - Diagnosis (1) Acute respiratory failure with hypoxia Is this a current diagnosis for this admission?: Yes Plan: Secondary to right lower lobe pneumonia. Currently on 2 L of nasal cannula. Will try to wean off O2 today. 05/06: She says that her shortness of breath continued to improve and she is returning to her baseline. Will have patient ambulate and evaluate for home O2 need. (2) Bacterial pneumonia Is this a current diagnosis for this admission?: Yes Plan: Continue IV antibiotics. Follow-up on sputum culture. Currently on Solu-Medrol 40 mg IV every 12. Switched to low-dose prednisone. (3) Hypertension Is this a current diagnosis for this admission?: Yes Plan: Controlled. - Time Time Spent with patient: 15-24 minutes
[2019-05-07] MEDS: HYDRALAZINE HCL INJ/PF 20 MG/1 ML SDV IV PRN (08:46)
[2019-05-07] MEDS ORDERED: AZITHROMYCIN 250 MG TABLET PO SCH (10:00)
[2019-05-07] MEDS: FAMOTIDINE 20 MG TABLET PO SCH (10:04)
[2019-05-07] MEDS: GUAIFENESIN 600 MG TABLET.SA PO SCH (10:04)
[2019-05-07] MEDS: PREDNISONE 20 MG TABLET PO SCH (10:04)
[2019-05-07 14:02] VITALS: BP 142/78
--- NOTE | 2019-05-08 17:54 | PDOC DISCHARGE SUMMARY ---
Impression - Admit/DC Date/PCP Admission Date/Primary Care Provider: 05/03/19 14:42 Discharge Date: 05/07/19 - Discharge Diagnosis (1) Acute respiratory failure with hypoxia Is this a current diagnosis for this admission?: Yes (2) Bacterial pneumonia Is this a current diagnosis for this admission?: Yes (3) Hypertension Is this a current diagnosis for this admission?: Yes - Additional Information Resuscitation Status: Do Not Resuscitate Discharge Diet: As Tolerated Discharge Activity: Activity As Tolerated Referrals: [facility] [Outside] - 05/12/19 3:15 pm (Dr. Lindsay. Please bring ID and any medications currently taking) Prescriptions: Levofloxacin [Levaquin 500 mg Tablet] 500 mg PO DAILY 3 Days #3 tablet Home Medications: Oxycodone HCl/Acetaminophen [Percocet 10-325 mg Tablet] 1 tab PO QIDP PRN 05/03/19 Levofloxacin [Levaquin 500 mg Tablet] 500 mg PO DAILY 3 Days #3 tablet 05/07/19 History of Present Illiness History of Present Illness: Admitting hospitalist's H&P: JEAN FREEDMAN is a 63 year old female who for about 1 week now has had some cough and shortness of breath with nasal congestion. She states she does not have a history of COPD. She does not have a PCP. She has been coughing up yellow- green phlegm. O2 sats are in the mid 90s in the ED. Patient states she smokes 1 pack of cigarettes per day. No drug allergies. Hospital Course Hospital Course: Patient is a 63-year-old female who presented with shortness of breath and was found to have a right lower lobe pneumonia. He was started on IV antibiotics and breathing treatments. She did improve significantly. She was eventually weaned off O2. She was able to ambulate the hallways on room air without any desaturation or shortness of breath and there discharge. She will be prescribed p.o. levofloxacin. Physical Exam Vital Signs: Temp Pulse Resp BP Pulse Ox 97.1 F 110 H 30 H 142/78 H 94 05/07/19 13:59 05/07/19 13:59 05/07/19 13:59 05/07/19 13:59 05/07/19 13:59 Intake & Output 05/06/19 05/07/19 05/08/19 06:59 06:59 06:59 Intake Total 1900 3834 377 Balance 1900 3834 377 Weight 177 lb 0.499 oz 181 lb 3.52 oz General appearance: PRESENT: no acute distress, well-developed, well-nourished Head exam: PRESENT: atraumatic, normocephalic Eye exam: PRESENT: conjunctiva pink, EOMI, PERRLA. ABSENT: scleral icterus Ear exam: PRESENT: normal external ear exam Mouth exam: PRESENT: moist, tongue midline Neck exam: ABSENT: carotid bruit, JVD, lymphadenopathy, thyromegaly Respiratory exam: PRESENT: clear to auscultation aleksandra. ABSENT: rales, rhonchi, wheezes Cardiovascular exam: PRESENT: RRR. ABSENT: diastolic murmur, rubs, systolic murmur Pulses: PRESENT: normal dorsalis pedis pul Rectal exam: PRESENT: deferred Extremities exam: PRESENT: full ROM. ABSENT: calf tenderness, clubbing, pedal edema Neurological exam: PRESENT: alert, awake, oriented to person, oriented to place, oriented to time, oriented to situation, CN II-XII grossly intact. ABSENT: motor sensory deficit Results Laboratory Results: WBC 13.5 10^3/uL (4.0-10.5) H 05/04/19 04:32 RBC 4.52 10^6/uL (3.72-5.28) 05/04/19 04:32 Hgb 13.7 g/dL (12.0-15.5) 05/04/19 04:32 Hct 40.9 % (36.0-47.0) 05/04/19 04:32 MCV 91 fl (80-97) 05/04/19 04:32 MCH 30.3 pg (27.0-33.4) 05/04/19 04:32 MCHC 33.4 g/dL (32.0-36.0) 05/04/19 04:32 RDW 12.8 % (11.5-14.0) 05/04/19 04:32 Plt Count 273 10^3/uL (150-450) 05/04/19 04:32 Lymph % (Auto) Not Reportable 05/04/19 04:32 [place] % (Auto) Not Reportable 05/04/19 04:32 Eos % (Auto) Not Reportable 05/04/19 04:32 Baso % (Auto) Not Reportable 05/04/19 04:32 Absolute Neuts (auto) Not Reportable 05/04/19 04:32 Absolute Lymphs (auto) Not Reportable 05/04/19 04:32 Absolute Monos (auto) Not Reportable 05/04/19 04:32 Absolute Eos (auto) Not Reportable 05/04/19 04:32 Absolute Basos (auto) Not Reportable 05/04/19 04:32 Total Counted 100 05/04/19 04:32 Seg Neutrophils % Not Reportable 05/04/19 04:32 Seg Neuts % (Manual) 96 % (42-78) H 05/04/19 04:32 Lymphocytes % (Manual) 2 % (13-45) L 05/04/19 04:32 Monocytes % (Manual) 2 % (3-13) L 05/04/19 04:32 Eosinophils % (Manual) 0 % (0-6) 05/04/19 04:32 Basophils % (Manual) 0 % (0-2) 05/04/19 04:32 Abs Neuts (Manual) 13.0 10^3/uL (1.7-8.2) H 05/04/19 04:32 Abs Lymphs (Manual) 0.3 10^3/uL (0.5-4.7) L 05/04/19 04:32 Abs Monocytes (Manual) 0.3 10^3/uL (0.1-1.4) 05/04/19 04:32 Absolute Eos (Manual) 0.0 10^3/uL (0.0-0.6) 05/04/19 04:32 Abs Basophils (Manual) 0.0 10^3/uL (0.0-0.2) 05/04/19 04:32 Platelet Comment ADEQUATE 05/04/19 04:32 RBC Morph Comment NORMO-CYTIC/CHROMIC 05/04/19 04:32 Sodium 138.7 mmol/L (137-145) 05/04/19 04:32 Potassium 4.4 mmol/L (3.6-5.0) 05/04/19 04:32 Chloride 104 mmol/L (98-107) 05/04/19 04:32 Carbon Dioxide 25 mmol/L (22-30) 05/04/19 04:32 Anion Gap 10 (5-19) 05/04/19 04:32 BUN 15 mg/dL (7-20) 05/04/19 04:32 Creatinine 0.73 mg/dL (0.52-1.25) 05/04/19 04:32 Est GFR ( Amer) > 60 (>60) 05/04/19 04:32 Est GFR (MDRD) Non-Af > 60 (>60) 05/04/19 04:32 Glucose 185 mg/dL (75-110) H 05/04/19 04:32 POC Glucose 224 mg/dL (70-110) H 05/04/19 16:07 Calcium 8.4 mg/dL (8.4-10.2) 05/04/19 04:32 Troponin I < 0.012 ng/mL 05/03/19 12:36 NT-Pro-B Natriuret Pep 1160 pg/mL (<125) H 05/03/19 12:36 Urine Color YELLOW 05/03/19 17:40 Urine Appearance CLEAR 05/03/19 17:40 Urine pH 6.0 (5.0-9.0) 05/03/19 17:40 Ur Specific [place] 1.024 05/03/19 17:40 Urine Protein 30 mg/dL (NEGATIVE) H 05/03/19 17:40 Urine Glucose (UA) >=500 mg/dL (NEGATIVE) H 05/03/19 17:40 Urine Ketones 20 mg/dL (NEGATIVE) H 05/03/19 17:40 Urine Blood NEGATIVE (NEGATIVE) 05/03/19 17:40 Urine Nitrite NEGATIVE (NEGATIVE) 05/03/19 17:40 Urine Bilirubin NEGATIVE (NEGATIVE) 05/03/19 17:40 Urine Urobilinogen NEGATIVE mg/dL (<2.0) 05/03/19 17:40 Ur Leukocyte Esterase NEGATIVE (NEGATIVE) 05/03/19 17:40 Ur Squamous Epith Cells MANY /HPF 05/03/19 17:40 Urine Mucus TRACE 05/03/19 17:40 Urine Ascorbic Acid 40 (NEGATIVE) H 05/03/19 17:40 05/03/19 05/03/19 12:36 12:36 Troponin I < 0.012 NT-Pro-B Natriuret Pep 1160 H Impressions: Chest X-Ray 05/03/19 13:21 IMPRESSION: Right lung infiltrate suspicious for pneumonia. Surveillance followup radiographs recommended to document resolution. . Chest X-Ray 05/06/19 14:02 IMPRESSION: Right lower lobe infiltrate has resolved. Stroke Is this a Stroke Patient?: No Acute Heart Failure - Is this a Heart Failure Patient?: No
== END 2019-05-07 14:15 | disposition home or self-care (01) | DRG 195 ==
LOC: ER 13:00 → EH 14:31 → OBSVTOIN 14:42 → 5 16:12
PROVIDERS: ADMIT Hospitalist; ATTEND Internal Medicine
DX: J15.9 Unspecified bacterial pneumonia (principal); I10 Essential (primary) hypertension; F17.210 Nicotine dependence, cigarettes, uncomplicated; Z66 Do not resuscitate; Z85.3 Personal history of malignant neoplasm of breast; Z90.11 Acquired absence of right breast and nipple
CPT/HCPCS: 36415; 71045; 71046; 80048; 81001; 82962; 83880; 84484; 85025; 87040; 87070; 87205; 93005; 93010; 99285; J0360; J0456; J0696; J1650; J2920; J2930; J3490; J7030; J7060; J7512; J7620

== ENCOUNTER → 2019-05-15 | Outpatient (CLI) | payer OTHER ==
[2019-05-15 10:13] LABS: ANION GAP 6 (5-19); BLOOD UREA NITROGEN 13 mg/dL (7-20); CALCIUM 8.7 mg/dL (8.4-10.2); CARBON DIOXIDE 33 mmol/L (22-30); CHLORIDE 103 mmol/L (98-107); CHOLESTEROL 197.64 mg/dL (0-200); GLUCOSE 116 mg/dL (75-110); POTASSIUM 4.2 mmol/L (3.6-5.0); TRIGLYCERIDES 123 mg/dL (<150)
[2019-05-15 10:24] LABS: DIRECT LDL 121 mg/dL (<100)
== END ==
LOC: OD 08:43
DX: E11.8 Type 2 diabetes mellitus with unspecified complications (principal)
CPT/HCPCS: 36415; 80048; 80061; 83036

== ENCOUNTER 2019-12-30 18:46 | Emergency (ER) | payer OTHER ==
--- NOTE | 2019-12-30 20:10 | ER Document Report ---
HPI - HPI Time Seen by Provider: 12/30/19 20:04 Pain Level: 3 Notes: CHIEF COMPLAINT: Left lower leg injury HPI: 64-year-old female presenting to the emergency department for evaluation of left lower leg swelling and injury from a fall 3 days ago. Slipped coming down the stairs and landed on the left lower leg. Denies knee pain denies foot pain denies hip pain denies other injuries or complaints. Has been able to weight- bear with some discomfort ROS: See HPI - all other systems were reviewed and are otherwise negative Constitutional: no fever Integumentary: no rash Allergy: no hives Musculoskeletal: + extremity pain or swelling Neurological: no numbness/tingling MEDICATIONS: I agree with the patient medications as charted by the RN. ALLERGIES: I agree with the allergies as charted by the RN. PAST MEDICAL HISTORY/PAST SURGICAL HISTORY: Reviewed and agree as charted by RN. SOCIAL HISTORY: Reviewed and agree as charted by RN. FAMILY HISTORY: No significant familial comorbid conditions directly related to patient complaint EXAM: Reviewed vital signs as charted by RN. CONSTITUTIONAL: Alert and oriented and responds appropriately to questions. Well-appearing; well-nourished HEAD: Normocephalic; atraumatic EYES: PERRL; Conjunctivae clear, sclerae non-icteric ENT: normal nose; no rhinorrhea; moist mucous membranes NECK: Supple without meningismus CARD: Capillary refill less than 3 seconds; symmetric distal pulses RESP: Normal chest excursion without splinting or tachypnea ABD/GI: non-distended BACK: The back appears normal EXT: Normal ROM in all joints; no cyanosis, no effusions, there is no tenderness on palpation of the left knee. There is no tenderness on palpation of the left foot. There is 2+ pitting edema to the left lower extremity extending down the anterior tibia to the level of the ankle and foot. Dorsalis pedis and posterior tibial pulses are present in the left foot and ankle. There is no tenderness directly over the medial or lateral malleolus of the left ankle. There is tenderness on palpation of the proximal fibular region of the left lower extremity SKIN: Normal color for age and race; warm; dry; good turgor; no acute lesions noted NEURO: Moves all extremities equally; Motor and sensory function intact PSYCH: The patient's mood and manner are appropriate. Grooming and personal hygiene are appropriate. MDM: 64-year-old female with left lower leg pain from a mechanical fall. No other apparent injuries at this time per history or exam. Will obtain x-ray of the left tib-fib region to evaluate for possible fracture - MUSCULOSKELETAL Musculoskeletal: REPORTS: Extremity pain Past Medical History - Social History Smoking Status: Former Smoker Chew tobacco use (# tins/day): No Frequency of alcohol use: None Drug Abuse: None Family History: Reviewed & Not Pertinent - Past Medical History Cardiac Medical History: Reports: Hx Hypertension Pulmonary Medical History: Denies: Hx COPD Renal/ Medical History: Denies: Hx Peritoneal Dialysis Malignancy Medical History: Reports: Hx Breast Cancer - patient is unsure of type, stage III at diagnosis, s/p R mastectomy Psychiatric Medical History: Denies: Hx Depression Past Surgical History: Reports: Hx Mastectomy - 2004, 18 lymph nodes removed Vertical Provider Document - INFECTION CONTROL TRAVEL OUTSIDE OF THE [place] IN LAST 30 DAYS: No Course - Re-evaluation Re-evalutation: 12/30/19 20:50 Patient is noted to have a proximal fibular fracture on x-ray. Will place in a knee immobilizer, crutches to help with weightbearing, pain medication orthopedic follow-up - Vital Signs Vital signs: Temp Pulse Resp BP Pulse Ox 97.7 F 80 164/77 H 96 12/30/19 19:58 12/30/19 19:55 12/30/19 19:55 12/30/19 19:55 Procedures - Immobilization Left Lower Leg Time completed: 20:54 Pre-Proc Neuro Vasc Exam: Normal Immobilizer type: Crutches, Knee immobilizer Performed by: PCT Post-Proc Neuro Vasc Exam: Normal, Unchanged from pre-exam Alignment checked and good: Yes Discharge - Discharge Clinical Impression: Fall Qualifiers: Encounter type: initial encounter Qualified Code(s): W19.XXXA - Unspecified fall, initial encounter Fracture, fibula, proximal Qualifiers: Encounter type: initial encounter Fracture type: closed Fracture morphology: other fracture Laterality: left Qualified Code(s): S82.832A - Other fracture of upper and lower end of left fibula, initial encounter for closed fracture Condition: Stable Disposition: HOME, SELF-CARE Instructions: Knee Immobilizing Splint ([facility]) Additional Instructions: It was noted on your x-ray imaging today that you have broken the proximal fibula bone of the left leg. Use the knee immobilizer to help with stability, do not sleep in the immobilizer. Use the crutches to help with walking for the next week. Follow-up closely with orthopedics for further evaluation and treatment call for appointment. Pain medication as prescribed do not drive if taking narcotics, watch for balance issues if taking narcotics. Prescriptions: Oxycodone HCl/Acetaminophen [Percocet 5-325 mg Tablet] 1 tab PO Q4H PRN #15 tab PRN Reason: Referrals: [facility] [Primary Care Provider] - Follow up as needed JOSE JOE JR, [ACTIVE PROVISIONAL STAFF] - Follow up as needed
--- NOTE | 2019-12-30 20:39 | RADIOLOGY REPORT (SQ) ---
EXAM DESCRIPTION: XR TIBIA FIBULA 2 VIEWS COMPLETED DATE/TME: 12/30/2019 20:07 CLINICAL HISTORY: 64 years, Female, fall COMPARISON: None. NUMBER OF VIEWS: TECHNIQUE: LIMITATIONS: None. FINDINGS: There is fracture involving the proximal fibula. There are mild degenerative changes involving the knee joint. There are calcaneal spurs. IMPRESSION: Fracture of the proximal fibula. Other findings as described. copyright 2010 [email or web address]- All Rights Reserved
[2019-12-30] MEDS ORDERED: OXYCODONE-ACETAMINOPHEN 5-325 MG TABLET PO ONE (20:41)
[2019-12-30 21:26] VITALS: BP 185/93
== END 2019-12-30 21:26 | disposition home or self-care (01) ==
LOC: ER 18:46
DX: S82.832A Other fracture of upper and lower end of left fibula, initial encounter for closed fracture (principal); W10.9XXA Fall (on) (from) unspecified stairs and steps, initial encounter; I10 Essential (primary) hypertension
CPT/HCPCS: 99283

== ENCOUNTER 2020-02-28 17:42 | Emergency (ER) | payer OTHER ==
[2020-02-28] MEDS ORDERED: FLUCONAZOLE 100 MG TABLET PO ONE (18:38)
--- NOTE | 2020-02-28 18:45 | ER Document Report ---
ED General - General Chief Complaint: Cold Symptoms Stated Complaint: COLD SYMPTOMS Time Seen by Provider: 02/28/20 18:20 Notes: HPI: 64-year-old female that presents with a constellation of symptoms. She states of 3 to 4 days she has had some runny nose, congestion, and a nonproductive cough. She denies any and all chest pain, calf pain, or leg swelling. Patient also states for 3 to 4 days she has had some redness underneath her left breast. History of a right mastectomy. She states she believes it is from "fungus from sweat under my breast". Patient also has had 3 days of some yellowish discharge from the right eye. She denies any pain to the face or to the eye. She denies any headache or double or blurry vision. ROS: See HPI All other review of systems reviewed and otherwise negative Reviewed vital signs and nursing note as charted by RN. PHYSICAL EXAM: CONSTITUTIONAL: Alert and oriented and responds appropriately to questions. Well-appearing; well-nourished HEAD: Normocephalic; atraumatic EYES: PERRL; injected with some yellow drainage to the right eye. No periorbital swelling or ecchymosis. No obvious foreign bodies present. Globes are soft. Full extraocular painless range of motion ENT: Normal nose; bilateral nonpurulent nasal rhinorrhea; moist mucous membranes; pharynx without lesions noted NECK: Supple without meningismus; non-tender; no cervical lymphadenopathy, no masses CARD: Regular rate and rhythm; no murmurs; symmetric distal pulses RESP: Normal chest excursion without splinting or tachypnea; breath sounds clear and equal bilaterally; no wheezing, rhonchi or rales ABD/GI: Normal bowel sounds; non-distended; soft, non-tender; no palpable organomegaly or masses BACK: The back appears normal and is non-tender to palpation EXT: Normal ROM in all joints; non-tender to palpation; no edema SKIN: Patient has some reddish lesions underneath the folds of the left breast with some satellite lesions present. No tenderness or fluctuance present NEURO: CN 2-12 intact; 5/5 bilateral upper and lower extremity strength with sensation intact to light touch PSYCH: The patient's mood and manner are appropriate. Grooming and personal hygiene are appropriate. TRAVEL OUTSIDE OF THE [place] IN LAST 30 DAYS: No - Related Data Allergies/Adverse Reactions: silk tape Allergy (Uncoded 12/30/19 20:01) Past Medical History - Social History Smoking Status: Unknown if Ever Smoked Family History: Reviewed & Not Pertinent - Past Medical History Cardiac Medical History: Reports: Hx Hypertension Pulmonary Medical History: Denies: Hx COPD Renal/ Medical History: Denies: Hx Peritoneal Dialysis Malignancy Medical History: Reports: Hx Breast Cancer - patient is unsure of type, stage III at diagnosis, s/p R mastectomy Psychiatric Medical History: Denies: Hx Depression Past Surgical History: Reports: Hx Mastectomy - 2004, 18 lymph nodes removed Physical Exam - Vital signs Vitals: Temp Pulse Resp BP Pulse Ox 98.2 F 110 H 22 H 155/72 H 95 02/28/20 17:47 02/28/20 17:47 02/28/20 17:47 02/28/20 17:47 02/28/20 17:47 Course - Re-evaluation Re-evalutation: 02/28/20 18:41 Given the above history and physical I did order a stat portable x-ray of the chest. I do not detect any obvious pneumonia. Patient is satting excellent on room air. Repeat heart rate is 92. I do believe ACS, PE, dissection, pn eumonia, all to be extremely unlikely. Given the constellation of symptoms of runny nose, eye drainage, and congestion I do believe this is most likely a viral process. I do believe acute temporal arteritis, acute angle-closure glaucoma, or foreign body to be unlikely. I will place the patient on Polytrim eyedrops. Given the patient's yeast infection underneath the left breast, I will provide the patient a Diflucan, nystatin powder, and will obtain an Accu-Chek prior to discharge. The patient was also evaluated during the global COVID-19 pandemic and that diagnosis was suspected/considered upon their initial presentation. Their evaluation, treatment and testing was consistent with current guidelines for patients who present with complaints or symptoms that may be related to COVID-19. - Vital Signs Vital signs: Temp Pulse Resp BP Pulse Ox 98.2 F 110 H 22 H 155/72 H 95 02/28/20 17:47 02/28/20 17:47 02/28/20 17:47 02/28/20 17:47 02/28/20 17:47 Discharge - Discharge Clinical Impression: Nasal congestion, Cough, Yeast infection of the skin Conjunctivitis, right eye Qualifiers: Conjunctivitis type: acute Acute conjunctivitis type: unspecified Qualified Code(s): H10.31 - Unspecified acute conjunctivitis, right eye Condition: Good Disposition: HOME, SELF-CARE Additional Instructions: Come back immediately for any worsening cough, swelling or pain around the eye, double or blurry vision, increased redness to the eye, fever or vomiting, chest pain or leg swelling, worsening rash to the chest, or any other acute problems. Please make sure that you take the eyedrops as directed, use the nystatin powder as prescribed, and take a repeat nystatin tablet 1 week from today. Please follow-up with your primary care physician. Prescriptions: Fluconazole [Diflucan] 150 mg PO ONCE PRN #1 tablet PRN Reason: Nystatin 1 each MC BID 10 Days powder.ea. Polymyxin B Sulf/Trimethoprim [Polytrim Eye Drops] 10 ml OP Q4H 7 Days #2 drops
--- NOTE | 2020-02-28 18:45 | RADIOLOGY REPORT (SQ) ---
EXAM DESCRIPTION: CHEST SINGLE VIEW IMAGES COMPLETED DATE/TIME: 02/28/2020 6:34 pm REASON FOR STUDY: "cold symptoms" COMPARISON: 05/06/2019. EXAM PARAMETERS: NUMBER OF VIEWS: One view. TECHNIQUE: Single frontal radiographic view of the chest acquired. RADIATION DOSE: NA LIMITATIONS: None. FINDINGS: LUNGS AND PLEURA: No opacities, masses or pneumothorax. No pleural effusion. MEDIASTINUM AND HILAR STRUCTURES: No masses. Contour normal. HEART AND VASCULAR STRUCTURES: Heart normal in size. Normal vasculature. BONES: No acute findings. HARDWARE: Surgical clips in the right axilla. OTHER: No other significant finding. IMPRESSION: NO ACUTE RADIOGRAPHIC FINDING IN THE CHEST. TECHNICAL DOCUMENTATION: JOB ID: [id number] 2010 [employer]- All Rights Reserved Reading location - IP/workstation name: [email or web address]
[2020-02-28 19:43] LABS: ABSOLUTE EOSINOPHILS # (AUTO) 0.4 10^3/uL (0.0-0.6); ABSOLUTE LYMPHOCYTES (AUTO) 0.8 10^3/uL (0.5-4.7); ABSOLUTE MONOCYTES (AUTO) 0.5 10^3/uL (0.1-1.4); ABSOLUTE NEUT (AUTO) 5.3 10^3/uL (1.7-8.2); BASOPHILS % (AUTO) 0.4 % (0-2); EOSINOPHILS % (AUTO) 5.2 % (0-6); HEMATOCRIT 41.2 % (36.0-47.0); HEMOGLOBIN 13.7 g/dL (12.0-15.5); LYMPHOCYTES % (AUTO) 12.2 % (13-45); MEAN CORPUSCULAR HEMOGLOBIN 30.1 pg (27.0-33.4); MEAN CORPUSCULAR HGB CONC 33.1 g/dL (32.0-36.0); MEAN CORPUSCULAR VOLUME 91 fl (80-97); MONOCYTES % (AUTO) 6.6 % (3-13); PLATELET COUNT 387 10^3/uL (150-450); RED BLOOD COUNT 4.54 10^6/uL (3.72-5.28); RED CELL DISTRIBUTION WIDTH 13.2 % (11.5-14.0); SEGMENTED NEUTROPHILS % (AUTO) 75.6 % (42-78); TOTAL CELLS COUNTED % (AUTO) 100 %
[2020-02-28 19:55] LABS: ALBUMIN 3.8 g/dL (3.5-5.0); ALKALINE PHOSPHATASE 77 U/L (38-126); ANION GAP 8 (5-19); ASPARTATE AMINO TRANSFERASE 22 U/L (14-36); BILIRUBIN,DIRECT 0.3 mg/dL (0.0-0.4); BILIRUBIN,TOTAL 0.3 mg/dL (0.2-1.3); BLOOD UREA NITROGEN 11 mg/dL (7-20); CALCIUM 9.1 mg/dL (8.4-10.2); CARBON DIOXIDE 35 mmol/L (22-30); CHLORIDE 98 mmol/L (98-107); GLUCOSE 193 mg/dL (75-110); POTASSIUM 4.3 mmol/L (3.6-5.0); TOTAL PROTEIN 6.8 g/dL (6.3-8.2)
[2020-02-28] MEDS ORDERED: METFORMIN HCL 500 MG TABLET PO ONE (20:07)
[2020-02-28] MEDS ORDERED: NORMAL SALINE 1000 ML 1,000 ML IV ONE (20:07)
[2020-02-28] MEDS ORDERED: NYSTATIN TOPICAL POWDER 15 GM TP ONE (20:11)
[2020-02-28 23:16] VITALS: BP 154/78
== END 2020-02-28 21:30 | disposition home or self-care (01) ==
LOC: ER 17:42
DX: B37.2 Candidiasis of skin and nail (principal); H10.31 Unspecified acute conjunctivitis, right eye; R09.81 Nasal congestion; R05 Cough; R09.89 Other specified symptoms and signs involving the circulatory and respiratory systems; H57.89 Other specified disorders of eye and adnexa; I10 Essential (primary) hypertension; Z90.11 Acquired absence of right breast and nipple; Z85.3 Personal history of malignant neoplasm of breast
CPT/HCPCS: 99284; 96360; 96361; 36415; 82962; 85025; 80053; 71045; J7030; J3490

== ENCOUNTER 2020-07-02 20:30 | Emergency (ER) | payer MEDICARE, OTHER ==
--- NOTE | 2020-07-02 20:58 | ER Document Report ---
ED Medical Screen (RME) - General Stated Complaint: RIGHT ARM SWELLING AND REDNESS Time Seen by Provider: 07/02/20 20:49 Information source: Patient Notes: Patient presents complaining of right upper extremity redness and swelling for the past 2 days. Patient is right-hand dominant. Patient has a history of previous breast cancer with mastectomy and states that she does have lymphedema to the right upper extremity although she does not typically have swelling to this extent. Patient denies any trauma to the arm. Patient denies any fever. I have greeted and performed a rapid initial assessment of this patient. A comprehensive ED assessment and evaluation of the patient, analysis of test results and completion of the medical decision making process will be conducted by additional ED providers. TRAVEL OUTSIDE OF THE [place] IN LAST 30 DAYS: No - Related Data Allergies/Adverse Reactions: silk tape Allergy (Uncoded 12/30/19 20:01) Past Medical History - Past Medical History Cardiac Medical History: Reports: Hx Hypertension Pulmonary Medical History: Denies: Hx COPD Renal/ Medical History: Denies: Hx Peritoneal Dialysis Malignancy Medical History: Reports: Hx Breast Cancer - patient is unsure of type, stage III at diagnosis, s/p R mastectomy Psychiatric Medical History: Denies: Hx Depression Past Surgical History: Reports: Hx Mastectomy - 2004, 18 lymph nodes removed Physical Exam - Vital signs Vitals: Temp Pulse Resp BP Pulse Ox 98.2 F 82 20 147/73 H 97 07/02/20 20:36 07/02/20 20:36 07/02/20 20:36 07/02/20 20:36 07/02/20 20:36 - Extremities General upper extremity: Tender, Edema, Other - Right upper extremity erythem atous, tender and swollen superimposed in the setting of lymphedema. No: Normal temperature Course - Vital Signs Vital signs: Temp Pulse Resp BP Pulse Ox 98.2 F 82 20 147/73 H 97 07/02/20 20:36 07/02/20 20:36 07/02/20 20:36 07/02/20 20:36 07/02/20 20:36
[2020-07-02 22:38] LABS: HEMATOCRIT 37.4 % (36.0-47.0); HEMOGLOBIN 12.7 g/dL (12.0-15.5); MEAN CORPUSCULAR HGB CONC 33.9 g/dL (32.0-36.0); MEAN CORPUSCULAR VOLUME 89 fl (80-97); PLATELET COUNT 282 10^3/uL (150-450); RED BLOOD COUNT 4.22 10^6/uL (3.72-5.28); RED CELL DISTRIBUTION WIDTH 13.9 % (11.5-14.0)
[2020-07-02 23:02] LABS: ALBUMIN 3.5 g/dL (3.5-5.0); ALKALINE PHOSPHATASE 83 U/L (38-126); ANION GAP 7 (5-19); ASPARTATE AMINO TRANSFERASE 28 U/L (14-36); BILIRUBIN,DIRECT 0.3 mg/dL (0.0-0.4); BILIRUBIN,TOTAL 0.5 mg/dL (0.2-1.3); BLOOD UREA NITROGEN 17 mg/dL (7-20); CALCIUM 8.7 mg/dL (8.4-10.2); CARBON DIOXIDE 31 mmol/L (22-30); CHLORIDE 96 mmol/L (98-107); GLUCOSE 120 mg/dL (75-110); POTASSIUM 3.6 mmol/L (3.6-5.0); TOTAL PROTEIN 7.1 g/dL (6.3-8.2)
[2020-07-02 23:19] LABS: ABSOLUTE LYMPHOCYTES# (MANUAL) 0.5 10^3/uL (0.5-4.7); ABSOLUTE MONOCYTES # (MANUAL) 0.9 10^3/uL (0.1-1.4); BASOPHILS % (MANUAL) 0 % (0-2); EOSINOPHILS % (MANUAL) 1 % (0-6); LYMPHOCYTES % (MANUAL) 4 % (13-45); MONOCYTES % (MANUAL) 7 % (3-13); SEGMENTED NEUTROPHILS % (MAN) 88 % (42-78); TOTAL CELLS COUNTED 100
[2020-07-02 23:21] LABS: PLATELET COMMENT ADEQUATE
[2020-07-02 23:23] LABS: BURR CELLS SLIGHT; POLYCHROMASIA SLIGHT; TOXIC VACUOLATION PRESENT
[2020-07-03] MEDS ORDERED: CLINDAMYCIN 900 MG/D5W RTU 900 MG/50 ML RTUPB IV ONE (05:09)
--- NOTE | 2020-07-03 05:12 | ER Document Report ---
ED General - General Chief Complaint: Arm Problem Stated Complaint: RIGHT ARM SWELLING AND REDNESS Time Seen by Provider: 07/02/20 20:49 Primary Care Provider: [facility]EL[facility] SIEGEL [facility] [Primary Care Provider] - Follow up as needed TRAVEL OUTSIDE OF THE [place] IN LAST 30 DAYS: No - HPI Context: Chief Complaint: [Right upper extremity swelling and erythema.] [This is a 65-year-old female who presents with a chief complaint of right upper extremity erythema and swelling for the past 2 days. Patient states she is got a history of previous breast cancer with mastectomy and that while she does have some lymphedema in the right upper extremity she does not typically have this much edema and does not have redness along with that. Patient denies any type of recent beater and pulper feeder trauma to the extremity. Patient denies fever ] History obtained from [patient] Symptoms began:[2 days ago] Onset: [Gradual] Timing: [Gradual] Quality: [Aching] Intensity: [4] Location: [Right upper extremity] Radiation: [Denies] [The pain does not migrate to a new location.] Aggravating factors: [none] Relieving factors: [none] [Denies] SOB [Denies] nausea [Denies] vomiting [Denies] sweats [Denies] fever [Denies] cough [Denies] calf or leg swelling or pain - Related Data Allergies/Adverse Reactions: silk tape Allergy (Uncoded 12/30/19 20:01) Home Medications: supplements Past Medical History - General Information source: Patient - Social History Smoking Status: Former Smoker Family History: Reviewed & Not Pertinent - Past Medical History Cardiac Medical History: Reports: Hx Hypertension Pulmonary Medical History: Denies: Hx COPD Renal/ Medical History: Denies: Hx Peritoneal Dialysis Malignancy Medical History: Reports: Hx Breast Cancer - patient is unsure of type, stage III at diagnosis, s/p R mastectomy Psychiatric Medical History: Denies: Hx Depression Past Surgical History: Reports: Hx Mastectomy - 2004, 18 lymph nodes removed Review of Systems - Review of Systems Notes: Review of systems as below unless otherwise stated in HPI. CONSTITUTIONAL [No] fever, [No] chills. EYES [No] eye pain. ENT [No] URI symptoms, [No] sore throat, [No] ear pain. CARDIOVASCULAR [No] chest pain, [No] palpitations, [No] edema. RESPIRATORY [No] Cough, [No] SOB, [No] wheezing. GASTROINTESTINAL [No] abdominal pain, [No] nausea, [No] Diarrhea, [No] Vomiting, [No] constipation, [No] melena, [No] rectal bleeding. GENITOURINARY [No] dysuria, [No] urinary frequency, [No] hematuria, [No] urinary urgency, [No] vaginal discharge, [No] vaginal bleeding. MUSCULOSKELETAL [No] Back pain. SKIN Positive erythema NEUROLOGIC [No] Headache, [No] recent seizures, [No] paralysis,[No] parathesias. ENDOCRINE [No] polyuria. HEMO/LYMPATIC Positive swelling PSYCHIATRIC [No] depression. Physical Exam - Vital signs Vitals: Temp Pulse Resp BP Pulse Ox 98.2 F 82 20 147/73 H 97 07/02/20 20:36 07/02/20 20:36 07/02/20 20:36 07/02/20 20:36 07/02/20 20:36 - Notes Notes: CONSTITUTIONAL [Vital signs reviewed, Patient appears comfortable, Alert and oriented X 3, Normal stature.] HEAD [Atraumatic, Normocephalic.] EYES [Eyes are normal to inspection, No discharge from eyes, Extraocular muscles intact, Sclera are normal, Conjunctiva are normal.] ENT [External ears normal to inspection, Nose examination normal, Mouth normal to inspection.] NECK [Normal ROM, No jugular venous distention, No meningeal signs, ] RESPIRATORY CHEST [Chest is nontender, Breath sounds normal, No respiratory distress.] CARDIOVASCULAR [RRR, No murmurs, Normal S1 S2, No rub, No gallop.] ABDOMEN [Abdomen is nontender, No pulsatile masses, No other masses, Bowel sounds normal, No distension, No peritoneal signs, No hernias.] BACK [There is no CVA Tenderness, There is no tenderness to palpation, Normal inspection.] UPPER EXTREMITY Examination is significant for diffuse edema in the right upper extremity along with diffuse macular blanching erythema LOWER EXTREMITY [Inspection normal, No cyanosis, No clubbing, No edema, No calf tenderness, NEURO [No focal motor deficits, No focal sensory deficits, Speech normal.] SKIN [Skin exam is significant for blanching circumferential erythema on the patient's right upper extremity.] PSYCHIATRIC [Normal affect. ] Course - Re-evaluation Re-evalutation: 07/03/20 06:02 Results of ED MSE discussed with patient. All questions were answered prior to discharge. Symptoms, reasons to return to the emergency department discussed with patient. - Vital Signs Vital signs: Temp Pulse Resp BP Pulse Ox 98.2 F 82 20 147/73 H 97 07/02/20 20:36 07/02/20 20:36 07/02/20 20:36 07/02/20 20:36 07/02/20 20:36 - Laboratory Results Result Diagrams: 07/02/20 22:20 07/02/20 22:20 Laboratory Results Interpreted: 07/02/20 07/02/20 22:20 22:20 WBC 13.0 H Seg Neuts % (Manual) 88 H Lymphocytes % (Manual) 4 L Abs Neuts (Manual) 11.4 H Sodium 133.7 L Chloride 96 L Carbon Dioxide 31 H Glucose 120 H Critical Laboratory Results Reviewed: No Critical Results Attending or Supervising Physician who Reviewed Labs: YOAN MUNOZ IV - Radiology Results Critical Radiology Results Reviewed: No Critical Results Attending or Supervising Physician who Reviewed Radiology: YOAN MUNOZ IV - Doppler study was negative for evidence of DVT or SVT. This information was relayed to Sissy Fernandes Discharge - Discharge Clinical Impression: Cellulitis of right upper extremity Condition: Stable Disposition: HOME, SELF-CARE Additional Instructions: Return to the Emergency Department without delay if any worse. HOME CARE INSTRUCTIONS & INFORMATION: Thank you for choosing us for your medic al needs. We hope you're satisfied with the care you received. After you leave, you must properly care for your problem and, at the same time, observe its progress. Any condition can change. Some illnesses can change rapidly over hours or days. If your condition worsens, return to the Emergency Department or see your physician promptly. ABOUT YOUR X-RAYS AND EKG'S: If you had an EKG or X-rays taken, they have been read by the Emergency Physician. The X-rays and EKG's will also be read by a Radiologist or Student Services Representative within 24 hours. If discrepancies are noted, you will be notified by telephone. Please be certain the ED has a correct telephone number & address where you can be reached. Also, realize that some fractures or abnormalities do not show up on initial X-rays. If your symptoms continue, see your physician. ABOUT YOUR LABORATORY TEST: If you had laboratory tests, the results have been reviewed by the Emergency Physician. Some test results (for example cultures) m ay not be available for several days. You will be contacted if any test result shows you need additional treatment. Please be certain the ED has a correct telephone number and address where you can be reached. ABOUT YOUR MEDICATIONS: You will receive instructions on how to take your medicine on the prescription label you receive. Additional information may be provided by the Pharmacy. If you have questions afterwards, call the ED for clarification or further instructions. Some prescribed medications may cause drowsiness. Do not perform tasks such as driving a car or operating machinery without consulting your Pharmacist. If you feel you need a refill of pain medication, your condition will need re-evaluation. Please do not call for a refill of any medication. ABOUT YOUR SIGNATURE: Signature of this document acknowledges to followin. Understanding that you received emergency treatment and that you may be released before al medical problems are known or treated. Please be certain the ED has a correct phone number & address where you can be reached. 2. Acknowledgement that you will arrange for follow-up care as recommended. 3. Authorization for the Emergency Physician to provide information to your follow-up Physician in order to maximize your care. AT ANY TIME, IF YOUR SYMPTOMS CHANGE SIGNIFICANTLY OR WORSEN OR YOU DEVELOP NEW SYMPTOMS, RETURN TO THE EMERGENCY DEPARTMENT IMMEDIATELY FOR RE-EVALUATION. OUR GOAL IS TO PROVIDE EXCELLENT MEDICAL CARE! WE HOPE THAT WE HAVE MET YOUR EXPECTATIONS DURING YOUR EMERGENCY DEPARTMENT VISIT AND THAT YOU FEEL YOU HAVE RECEIVED EXCELLENT CARE! Cellulitis You have an infection of your skin and underlying soft tissues called cellulitis. This is due to bacteria, which can enter through any break in the skin, or even through an irritated hair follicle. Untreated, cellulitis will usually worsen. Antibiotics are required. Usually, warm packs or warm soaks, and elevation of the infected area are recommended. You should start getting better within 24 to 36 hours. Most infections respond quickly to the right medication. Follow-up care is important, however, to check for abscess (boil) formation, unsuspected foreign body, or resistant infection. If you develop fever, chills, or if the area of infection is becoming ra pidly more swollen or painful, call the doctor at once. Prescriptions: Clindamycin HCl [Cleocin 150 mg Capsule] 450 mg PO TID 7 Days #63 capsule Referrals: AN[facility]ELINA SIEGEL [facility] [Primary Care Provider] - Follow up as needed
[2020-07-03 06:23] VITALS: BP 121/59
--- NOTE | 2020-07-03 06:24 | RADIOLOGY REPORT (SQ) ---
Ultrasound right upper extremity venous duplex exam on 07/02/2020 at 9:49 PM CLINICAL INDICATION: Right arm swelling COMPARISON: None FINDINGS: Multiple sonographic images are obtained throughout the right internal jugular vein and right upper extremity venous system. Color flow, compression and spectral analysis are all performed. The radial and ulnar veins are not visualized due to the patient's significant swelling. Otherwise there is complete compressibility of the veins of the neck and upper extremity in their compressible regions. Good color flow is identified within the veins of the neck and upper extremity. IMPRESSION: No evidence of deep venous thrombus.
== END 2020-07-03 06:24 | disposition home or self-care (01) ==
LOC: ER 20:30
DX: L03.113 Cellulitis of right upper limb (principal); I10 Essential (primary) hypertension; Z85.3 Personal history of malignant neoplasm of breast
CPT/HCPCS: 99285; 96365; 36415; 87040; 85025; 80053; 93971; J3490